=== PATIENT | male | born 1980 | race Caucasian/White ===

== ENCOUNTER 2020-06-17 18:57 | Emergency (ER) | payer BC ==
[~2020-06-17] VITALS: Ht 182.9 cm; Wt 90.7 kg
--- NOTE | 2020-06-17 19:58 | NUR ---
Patient is sitting up in bed, asked if he is able to use the phone. No distress noted at this time. Patient is being taken for CT scan now.
--- NOTE | 2020-06-17 20:33 | NUR ---
Patient right forearm and wrist splinted.
[2020-06-17 20:44] VITALS: BP 134/86
--- NOTE | 2020-06-17 20:44 | NUR ---
Patient discharged to home in stable condition. Written and verbal after care instructions given. Patient verbalizes understanding of instructions. Stressed follow up or return to ER for worsening s/s. Patient is able to ambulate without problems. Patient left with belongings.
== END 2020-06-17 20:44 | disposition home or self-care (01) ==
LOC: ER 19:02
DX: G56.31 Lesion of radial nerve, right upper limb (principal); S00.01XA Abrasion of scalp, initial encounter; W01.0XXA Fall on same level from slipping, tripping and stumbling without subsequent striking against object, initial encounter; Y92.89 Other specified places as the place of occurrence of the external cause; R51.9 Headache, unspecified; F19.10 Other psychoactive substance abuse, uncomplicated; F41.9 Anxiety disorder, unspecified; F32.9 Major depressive disorder, single episode, unspecified
CPT/HCPCS: 70450; 72125; A4663

== ENCOUNTER 2020-08-16 12:43 | Emergency (ER) | payer BC ==
[~2020-08-16] VITALS: Ht 182.9 cm; Wt 90.7 kg
--- NOTE | 2020-08-16 12:46 | NUR ---
MD@[email or web address], medical screening exam in progress
[2020-08-16] MEDS ORDERED: IV NORMAL SALINE 1000 ML BAG IV ONE (13:15)
[2020-08-16 13:20] LABS: BASOPHILS % (AUTO) 0.2 % (0.0-2.0); EOSINOPHILS % (AUTO) 0.6 % (0.0-7.0); HEMATOCRIT 42.9 % (36.7-47.1); HEMOGLOBIN 14.6 g/dL (12.5-16.3); LYMPHOCYTES # (AUTO) 1.8 K/uL (20.0-40.0); LYMPHOCYTES % (AUTO) 22.1 % (20.5-51.5); MEAN CORPUSCULAR HEMOGLOBIN 29.9 uug (23.8-33.4); MEAN CORPUSCULAR HGB CONC 34 g/dL (32.5-36.3); MEAN CORPUSCULAR VOLUME 88.2 fL (73.0-96.2); MONOCYTES # (AUTO) 0.3 K/uL (2.0-10.0); MONOCYTES % (AUTO) 3.5 % (0.0-11.0); NEUTROPHILS # (AUTO) 5.9 K/uL (1.8-8.9); NEUTROPHILS % (AUTO) 73.6 % (38.5-71.5); PLATELET COUNT (AUTO) 189 K/uL (152-348); RED BLOOD CELL COUNT(AUTO) 4.87 MIL/uL (4.06-5.63)
[2020-08-16 13:27] LABS: CREATININE 0.7 mg/dL (0.6-1.3); POTASSIUM 3.3 mmol/L (3.5-5.1)
[2020-08-16 13:33] LABS: BILIRUBIN,DIRECT 0.2 mg/dL (0.0-0.2); BILIRUBIN,TOTAL 0.4 mg/dL (0.2-1.0); TOTAL PROTEIN, SERUM 6.6 g/dL (6.4-8.2)
[2020-08-16] MEDS ORDERED: POTASSIUM CHLORIDE 20 MEQ TAB.PRT.SR PO ONE (13:45)
--- NOTE | 2020-08-16 13:45 | NUR ---
Patient is AOx2-3, intermittently lucid and confuse but able to express his needs, continent of urine, follows command, for [email or web address] time per MD. Patient's father was updated by gas charger Jesse.
[2020-08-16 13:56] LABS: *AMPHETAMINE, URINE NEGATIVE (NEGATIVE); *CANNABINOID, URINE NEGATIVE (NEGATIVE); *COCCAINE, URINE NEGATIVE (NEGATIVE); *OPIATE, URINE NEGATIVE (NEGATIVE); *PHENCYCLIDINE SCREEN,URINE NEGATIVE (NEGATIVE)
[2020-08-16] MEDS ORDERED: ZIPRASIDONE MESYLATE 20 MG VIAL IM ONE ×2 (14:00→14:06)
--- NOTE | 2020-08-16 14:00 | NUR ---
Patient is still confuse and wants to go home, MD notified.
[2020-08-16] MEDS ORDERED: POTASSIUM CHLORIDE 20 MEQ TAB.PRT.SR ONE (14:01)
[2020-08-16] MEDS ORDERED: KETAMINE HCL 500 MG/10 ML INJ ONE ×4 (15:09→17:27)
[2020-08-16] MEDS ORDERED: KETAMINE HCL 500 MG/10 ML INJ IV ONE (15:15)
--- NOTE | 2020-08-16 15:24 | NUR ---
Patient is uncooperative & combative despite anti-psychotic medicines and ketamine. He remains a high risk for injury to self and others, MD is aware. Security assistance requested.
[2020-08-16] MEDS ORDERED: KETAMINE HCL 500 MG/10 ML INJ IM ONE ×2 (16:30→17:30)
[2020-08-16] MEDS ORDERED: HALOPERIDOL LACTATE 5 MG/1 ML VIAL IM ONE ×2 (18:15→19:15)
[2020-08-16] MEDS ORDERED: HALOPERIDOL LACTATE 5 MG/1 ML VIAL ONE ×2 (18:16→18:35)
--- NOTE | 2020-08-16 18:56 | NUR ---
Hands off report given to NEGAR Leggett.
--- NOTE | 2020-08-16 20:40 | NUR ---
Patient has been cooperative, removed arm restraints per MD instructions.
--- NOTE | 2020-08-16 21:46 | NUR ---
Pt has been cooperative removed restraint on right leg.
--- NOTE | 2020-08-16 22:11 | NUR ---
Spoke with patient's father, Devan Waddell , phone number . 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 made aware. 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
[2020-08-16] MEDS ORDERED: CHLO25CA22 PO (22:41)
[2020-08-16 22:47] LABS: ACETAMINOPHEN < 2.0 ug/mL (10-30)
[2020-08-16] MEDS ORDERED: CHLORDIAZEPOXIDE HCL 25 MG CAPSULE PO ONE (23:00)
--- NOTE | 2020-08-17 | NUR ---
Released left foot restraint, patient able to ambulate to nursing station with steady gait, no falls noted.
[2020-08-17] MEDS ORDERED: CHLORDIAZEPOXIDE HCL 25 MG CAPSULE ONE (00:03)
--- NOTE | 2020-08-17 00:15 | NUR ---
Received taxi voucher from transfer and pumphouse operator. Called [facility] for patient to go to his home at [id number] [place] [id number]. ETA 1 hour.
--- NOTE | 2020-08-17 00:50 | NUR ---
Dr. Quinonez speaking with patient's father, Devan Waddell Sr.
--- NOTE | 2020-08-17 01:00 | NUR ---
Per Dr. Quinonez's conversation with patient's parents, patient denies suicidal ideation and cannot be held in the ER against their will.
--- NOTE | 2020-08-17 01:20 | NUR ---
Patient speaking with parents, patient promised to call his parents when he is home.
--- NOTE | 2020-08-17 01:30 | NUR ---
Called [facility] [employer], stated still no drivers available in this area, maybe another 30-1 hour eta.
--- NOTE | 2020-08-17 02:30 | NUR ---
Called [employer], still no drivers available, maybe 1 hour eta.
--- NOTE | 2020-08-17 03:00 | NUR ---
Pt sleeping in bed, no acute signs of distress.
--- NOTE | 2020-08-17 04:00 | NUR ---
Called [employer], eta unknown.
--- NOTE | 2020-08-17 06:10 | NUR ---
Received call back from [employer], still waiting on getting a local combination truck driver for this area.
--- NOTE | 2020-08-17 07:11 | NUR ---
[facility]
--- NOTE | 2020-08-17 07:26 | NUR ---
[employer] called back -- cab will be here in about 20 minutes, #[phone].
== END 2020-08-17 07:45 | disposition home or self-care (01) ==
LOC: ER 12:44
DX: F10.221 Alcohol dependence with intoxication delirium (principal); Y90.8 Blood alcohol level of 240 mg/100 ml or more; E87.6 Hypokalemia; Z20.822 Contact with and (suspected) exposure to COVID-19
CPT/HCPCS: 36415; 70450; 71045; 80048; 80076; 80299; 80307; 80320; 82550; 82962; 84484; 85025; 85730; 87426; 93005; 96372 ×2; 96374; 99285; J1630 ×2; J3486; J3490 ×3; 70030-TC; A4663; G0480; J7030